=== PATIENT | male | born 1980 | race Two or more races ===

== ENCOUNTER 2025-04-18 15:32 | Emergency (ER) | payer MEDICAID, SELFPAY ==
[2025-04-18 15:32] VITALS: BMI 32.3
[2025-04-18 16:07] VITALS: BP 172/104; PULSE 90; RESP 20; TEMP 36.6; O2SAT 97
--- NOTE | 2025-04-18 16:14 | XR_ITS ---
Examination: CT abdomen and pelvis without contrast. Coronal 3-D reconstructions. Sagittal 2-D reconstructions. Date and time of exam: April 18, 2025, 1709 hours, comparison December 11, 2013 INDICATIONS: Left lower abdominal pain today CTDI: vol (mGy): 10.7 DLP: (mGycm): 675 Technique: Axial images of the abdomen have been obtained, 3 mm slice thickness Intravenous contrast material has not been administered. Low dose protocols were performed. One or more of the following dose reduction techniques were used; automated exposure control, adjustment of the mA and/or KV according to patient size, use of iterative reconstruction technique. Findings: No visualized liver or splenic lesion No gallstones No pancreatic or adrenal mass Minimal left hydronephrosis secondary to 3 mm distal left ureteral calculus Normal appendix No bowel obstruction Contracted urinary bladder Intact osseous structures IMPRESSION: Minimal left hydronephrosis secondary to 3 mm distal left ureteral calculus
--- NOTE | 2025-04-18 16:15 | PD.EDRME ---
Rapid Medical Screening Exam RME Arrival date/time: 04/18/25 15:32 Chief Complaint: Back Pain/Injury Vital signs: Vital Signs Temperature 97.9 F 04/18/25 16:07 Pulse Rate 90 04/18/25 16:07 Respiratory Rate 20 04/18/25 16:07 Blood Pressure 172/104 H 04/18/25 16:07 Pulse Oximetry (%) 97 04/18/25 16:07 Oxygen Delivery Method Room Air 04/18/25 16:07 RME Narrative: 45-year-old male with past medical history of hypertension presents to the ER complaining of left flank pain x 1 hour with nausea. Denies any fever, vomiting, diarrhea, dysuria, hematuria. I briefly performed a screening evaluation to initiate work-up and expedite care. Complete history, physical exam, and plan of care is deferred to the provider in the main ED. Exam: Head: Normocephalic, atraumatic. Respiratory: Normal effort. No respiratory distress or accessory muscle use. Neuro: Speech normal. Skin: Warm, dry, normal color. Psych: Pleasant. Normal affect. Cooperative. Clinical Impression: Left flank pain rule out kidney stone
[2025-04-18] MEDS: ONDANSETRON ODT 4 MG TABRAP PO ×2 (16:23→20:30)
[2025-04-18] MEDS: KETOROLAC INJ 30 MG/ML VIAL 15 MG IM (16:25)
[2025-04-18 16:31] LABS: Basophils # (Auto) 0.1 Thou/mm3 (0.0-0.2); Basophils % (Auto) 1 % (0-2.5); Eosinophils # (Auto) 0.2 Thou/mm3 (0.0-0.5); Eosinophils % (Auto) 2 % (0-10); Hematocrit 44.7 % (41.0-53.0); Hemoglobin 15.1 g/dL (13.5-16.0); Immature Granulocytes Auto 0.03 Thou/mm3 (0.00-0.00); Lymphocytes # (Auto) 2.4 Thou/mm3 (1.0-4.8); Lymphocytes % (Auto) 26 % (10-50); Mean Corpuscular HGB Conc 33.8 g/dl (31.0-37.0); Mean Corpuscular Hemoglobin 28.5 pg (25.0-35.0); Mean Corpuscular Volume 84 fL (80-100); Monocytes # (Auto) 0.6 Thou/mm3 (0.0-0.8); Monocytes % (Auto) 6 % (0-12); Neutrophils # (Auto) 5.9 Thou/mm3 (1.8-7.7); Neutrophils % (Auto) 65 % (37-80); Nucleated Red Blood Cell # 0.00 Thou/mm3 (0.00-0.00); Nucleated Red Blood Cell % 0 /100 WBC (0); Platelet Count 334 Thou/mm3 (140-440); RDW Standard Deviation 41.1 fL (35.1-43.9); Red Blood Count 5.30 Miln/mm3 (4.50-5.90); White Blood Count 9.1 Thou/mm3 (3.8-10.6)
[2025-04-18 16:51] LABS: Collection Type, Urine Voided; Squamous Epithelial Cell,Urine 0 /hpf (0-5)
[2025-04-18 16:54] LABS: Alanine Aminotransferase 31 U/L (10-49); Albumin, Serum 4.8 gm/dL (3.5-5.0); Albumin/Globulin Ratio 1.7 (1.2-2.2); Alkaline Phosphatase 61 U/L (46-116); Anion Gap 8 (7-16); Aspartate Amino Transferase 29 U/L (0-34); BUN/Creatinine Ratio 10 Ratio (12-20); Bilirubin,Total 0.8 mg/dL (0.3-1.2); Blood Urea Nitrogen 13 mg/dL (9-23); Calcium 9.7 mg/dL (8.3-10.6); Calcium (Corrected) 9.7 mg/dL (8.5-10.1); Carbon Dioxide 28.3 mMol/L (20.0-31.0); Chloride 106 mMol/L (98-107); Creatinine (Component) 1.3 mg/dL (0.6-1.3); Estimated Creatinine Clearance 86.8 mL/min (>60); Globulin 2.8 gm/dL (2.3-3.5); Glucose 113 mg/dL (74-106); Lipase 40 U/L (12-53); Osmolality,Calculated 284 (275-295); Potassium 3.6 mMol/L (3.4-5.1); Sodium 142 mMol/L (136-145); Total Protein 7.6 gm/dL (5.7-8.2); eGFR > 60 See Note
[2025-04-18 16:56] LABS: Bilirubin,Urine Negative (Negative); Blood,Urine 3+ (Negative); Clarity,Urine Clear (Clear/Hazy); Color,Urine Lt-Yellow (Lt Yel-Yel); Culture Indicated,Urine Not Indicated; Glucose, Urine Negative (Negative); Hyaline Casts,Urine < 1 /hpf (0-1); Ketones,Urine Negative (Negative); Leukocyte Esterase,Urine Negative (Negative); Nitrite,Urine Negative (Negative); PH,Urine 6.5 (5.0-7.0); Protein,Urine Trace (Neg - Trace); RBC,Urine 372 /hpf (0-3); Specific Gravity,Urine 1.020 (1.001-1.035); Urobilinogen,Urine Negative mg/dL (0.0-1.0); WBC,Urine 1 /hpf (0-5)
--- NOTE | 2025-04-18 18:17 | PD.EDBACK ---
ED Back Injury Pain RME/HPI General Chief Complaint: Back Pain/Injury Stated Complaint: L FLANK PAIN X1 HR RADIATING TO L LOWER ABD Time Seen by Provider: 04/18/25 17:55 Arrival date/time: 04/18/25 15:32 RME / HPI RME / HPI Narrative: 45-year-old male with past medical history of hypertension presents to the ER complaining of left flank pain x 1 hour with nausea. Denies any fever, vomiting, diarrhea, dysuria, hematuria. I briefly performed a screening evaluation to initiate work-up and expedite care. Related Data Home Medications ?Medication ?Instructions ?Recorded ?Confirmed Lisinopril/Hydrochlorothiazide * 1 tab PO QAM HBP #0 tabs 05/17/14 (PRINZIDE *) Previous Rx's ?Medication ?Instructions ?Recorded Amlodipine Besylate 1 tab PO QAM #30 tabs 06/13/13 lopressor 50mg 1 tab PO QDAY ##50 05/17/14 ketorolac 10 mg tablet 10 mg PO Q8H #14 tabs 04/18/25 ondansetron 4 mg disintegrating 4 mg PO Q8H PRN nausea and 04/18/25 tablet vomiting #12 tabs tamsulosin 0.4 mg capsule 0.4 mg PO QDAY #14 caps 04/18/25 Allergies Allergy/AdvReac Type Severity Reaction Status Date / Time NKA* Allergy Uncoded 04/18/25 15:34 ED Exam Narrative Physical exam: Constitutional: Patient alert and oriented. Well appearing. No acute distress. Not toxic appearing. Head: Normocephalic, atraumatic. Eyes: Periorbital regions bilaterally normal to inspection. Conjunctiva clear bilaterally. Sclera anicteric bilaterally. Pupils equal, round, reactive to light bilaterally. Extraocular movements intact bilaterally. Mouth/Throat: Mucous membranes moist. No stridor or muffled voice. No trismus. Handling secretions without difficulty. Airway widely patent. Neck: Supple. Trachea midline. No JVD. No nuchal rigidity. Normal range of motion. Respiratory: Normal effort. No accessory muscle use or respiratory distress. Lungs clear to auscultation bilaterally without rhonchi, wheezes, or crackles. Cardiovascular: RRR. Normal S1/S2. No murmurs or rubs. Radial pulses intact bilaterally. Abdomen: Soft. Non-distended. Non-tender throughout. No pulsatile mass. No guarding or rebound. Negative Coombs?s sign. Negative McBurney?s point tenderness. Negative Rovsing?s. Back: No midline tenderness or step-offs. Left CVA tenderness to palpation. Upper Extremities: No gross deformities. Lower Extremities: No gross deformities. No edema or calf tenderness. Neuro: Speech normal. No gross motor or sensory deficits to upper or lower extremities bilaterally. GCS 15. CN II?XII grossly intact. Skin: Warm, dry, normal color. Psych: Normal affect. Cooperative. Normal insight. Course Quality Measures none Orders Category Date Time Status CT abdomen pelvis wo con Stat Exams 04/18/25 16:14 Completed CBC Stat Lab 04/18/25 16:25 Completed CMP [Comprehensive Metabolic Panel] Stat Lab 04/18/25 16:25 Completed Lipase Stat Lab 04/18/25 16:25 Completed UA, C/S IF [Urinalysis, C/S if Indicated] Stat Lab 04/18/25 16:41 Completed Ketorolac Inj [Toradol Inj] Med 04/18/25 16:14 Discontinued 15 mg IM X1 ONE Ketorolac Inj [Toradol Inj] Med 04/18/25 19:33 Discontinued 30 mg IM X1 ONE Ondansetron Odt [Zofran Odt] Med 04/18/25 16:14 Discontinued 4 mg PO X1 ONE Ondansetron Odt [Zofran Odt] Med 04/18/25 19:33 Discontinued 4 mg PO X1 ONE oxyCODONE/APAP 5/325 [Percocet 5/325] Med 04/18/25 19:33 Discontinued 2 tab PO X1 ONE Reevaluation(s) Reevaluation #1: At the time of reassessment, the patient remains alert and oriented ?3 with GCS 15. Vitals are normal, pain is controlled, and the patient is tolerating oral intake without nausea or vomiting. The patient is agreeable to discharge and verbalizes understanding of the diagnosis, studies, treatment plan, medications (including side effects/precautions), and strict ER return precautions as discussed in the ED. All concerns were addressed, and the patient is comfortable with the plan. Vital Signs Vital signs: Vital Signs Temperature 97.9 F 04/18/25 16:07 Pulse Rate 90 04/18/25 16:07 Respiratory Rate 20 04/18/25 16:07 Blood Pressure 172/104 H 04/18/25 16:07 Pulse Oximetry (%) 97 04/18/25 16:07 Oxygen Delivery Method Room Air 04/18/25 16:07 Back Pain / Injury MDM Narrative MDM Narrative:: MDM: Suspected Renal Colic 2/2 Nephrolithiasis Presentation most consistent with ureteral colic secondary to nephrolithiasis. Differential includes recently passed stone, cystitis, and musculoskeletal pain (strain/sprain). Stone identified 3mm in distal left ureter with mild hydro, not located at the UPJ. Hydronephrosis noted on the affected side without perinephric stranding or urine extravasation. No urethral strictures identified. No evidence of solitary or transplanted kidney. UA without signs of infection Serious Causes Considered and Deemed Unlikely: Obstructive uropathy: Hydronephrosis present but patient remains hemodynamically stable, afebrile, and nontoxic. No perinephric changes or systemic findings to suggest high-grade obstruction. Renal failure, solitary, or transplanted kidney: BUN 13, Cr 1.3 WNL. No history of solitary or transplanted kidney. AAA or other surgical emergency: No abdominal mass, atypical pain pattern, or hemodynamic instability to suggest aneurysm or alternative vascular cause. Musculoskeletal pain: Considered but less likely given pain character, radiation, and urinalysis/imaging findings. Summary: Findings support nephrolithiasis with hydronephrosis without evidence of sepsis, high-grade obstruction, renal failure, or alternative emergent etiology. Stone size suggests likely spontaneous passage with conservative management. Plan: Pain contro, tamsulosin, and antiemetics as needed. Encourage hydration to promote stone passage. Outpatient urology and PMD follow-up in 1-2 days for reassessment and repeat imaging if symptoms persist or worsen. Return precautions: fever, chills, worsening flank or abdominal pain, vomiting, inability to tolerate fluids, urinary retention, or anuria. Patient understands and agrees with plan and disposition. Patient data External records reviewed:: None Clinical information provided by:: patient and none Social determinants that could affect healthcare access:: none Patient has the following chronic illnesses:: None How is presenting disease/condition affected by chronic disease/condition?: uneffected by Evaluation data The following diagnostics were reviewed and interpreted by me:: lab results, radiology exam(s) and other (specify) Lab and/or radiology exams considered but not ordered:: Additional Labs and radiology considered, but not ordered as they were not clinically indicated at this time. Interpretation Summary: CBC without severe leukocytosis, anemia, or thrombocytopenia CMP without severe hyperbilirubinemia, transaminitis, acute renal failure or severe electrolyte derangement Lipase without severe elevation UA without infection Medications / Prescriptions Medications or Prescriptions considered but not ordered:: I considered prescription management (both outpatient prescriptions AND drug treatment in the ER) and decided that this was necessary and was prescribed as charted. Medication administrations:: Medication Administration History Discontinued Medications Ketorolac Tromethamine (Ketorolac Inj 30 Mg/Ml Vial) 15 mg IM X1 ONE Stop: 04/18/25 16:15 Last Admin: 04/18/25 16:25 Dose: 15 mg Documented By: Ketorolac Tromethamine (Ketorolac Inj 30 Mg/Ml Vial) 30 mg IM X1 ONE Stop: 04/18/25 19:34 Ondansetron HCl (Ondansetron Odt 4 Mg Tabrap) 4 mg PO X1 ONE; Protocol Stop: 04/18/25 16:15 Last Admin: 04/18/25 16:23 Dose: 4 mg Documented By: Ondansetron HCl (Ondansetron Odt 4 Mg Tabrap) 4 mg PO X1 ONE; Protocol Stop: 04/18/25 19:34 Oxycodone/Acetaminophen (Oxycodone/Apap 5/325 Tablet) 2 tab PO X1 ONE Stop: 04/18/25 19:34 As noted Consultations Consultation(s) initiated? (list below): No Diagnosis Most likely diagnosis given after review of the tests above:: As noted Admission Indicated Admission indicated?: not indicated Admission Request Was there a request for admission?: No Disposition Plan Disposition Plan: Discharge Discharge Attestation Discharge Attestation: The patient and all family members were given an opportunity to ask questions and understood the discharge instructions. Discharge instructions specifically effects, indications for sooner follow up or return to the emergency department, and the expected course of current diagnosis. Patient condition: Stable Discharge Plan Plan Patient Disposition: HOME (Self Care) Prescriptions/Referrals Prescriptions/Med Rec: New tamsulosin 0.4 mg capsule 0.4 mg PO QDAY Qty: 14 0RF Rx Instructions: take at night will make you dizzy ketorolac 10 mg tablet 10 mg PO Q8H Qty: 14 0RF Rx Instructions: maximum total duration of 5 days from all oral, intranasal, or parenteral formulations ondansetron 4 mg tablet,disintegrating 4 mg PO Q8H PRN (Reason: nausea and vomiting) Qty: 12 0RF Rx Instructions: 1-2 tabs PO Q8Hr prn nausea or vomit No Action Amlodipine Besylate 10 MG tablet 1 tab PO QAM Qty: 30 0RF Lisinopril/Hydrochlorothiazide * (PRINZIDE 20/25 *) 1 TAB tablet 1 tab PO QAM Qty: 0 lopressor 50mg 1 tab PO QDAY Qty: 50 0RF Referrals: No Primary/Family,Physician [Primary Care Provider] - In 1 week Problem List Clinical Impression: Kidney calculi Patient/Caregiver Discharge Instructions Education Materials: ED Kidney Stone w/ Colic Additional Instructions: Follow up with your primary medical doctor and a urologist within 24 hours. Return to the Emergency Room immediately for any new, worsening, continuing symptoms or any concerns at all. Return to the Emergency Room within 24 hours if you are unable to follow up with your primary medical doctor and a urologist within 24 hours. Print Language: Citizen Of [place] Stand Alone Forms: Hannah Award Info., Patient Portal Info Letter PA/CHANNEL MARKETING MANAGER Supervising Physician PA/ARISTEO Supervising Physician: Dr. Camacho
[2025-04-18] MEDS: KETOROLAC INJ 30 MG/ML VIAL IM (20:32)
== END 2025-04-18 21:05 | disposition home or self-care (01) ==
PROVIDERS: Physician Assistant; Emergency Provider Family Medicine
DX: N13.2 Hydronephrosis with renal and ureteral calculous obstruction (principal); I10 Essential (primary) hypertension
CPT/HCPCS: 36415; 74176; 80053; 81001; 83690; 85025; 96372; 99283; J1885; Q0162; A9270